=== PATIENT | female | born 1980 | race Caucasian/White ===

== ENCOUNTER 2022-12-11 12:00 | Emergency (ER) | payer SELFPAY ==
[2022-12-11] MEDS ORDERED: Methadone 10 MG Tab PO STA (12:26)
[2022-12-11] MEDS ORDERED: ALPRAZolam 0.5 MG Tab PO ONE (12:28)
== END 2022-12-11 13:13 | disposition home or self-care (01) ==
LOC: MW.ED 12:00
DX: F11.23 Opioid dependence with withdrawal (principal); F15.23 Other stimulant dependence with withdrawal; Z88.8 Allergy status to other drugs, medicaments and biological substances; Z72.0 Tobacco use
CPT/HCPCS: 99283; A9270